=== PATIENT | female | born 1990 | race African-American/Black ===

== ENCOUNTER 2019-09-16 14:32 | Outpatient (RCR) | payer OTHER, SELFPAY ==
--- NOTE | ~2019-09-16 | US_ITS ---
EXAMINATION: US OB BPP wo non-stress DATE: 09/16/2019 16:02 INDICATION: Decreased movements TECHNIQUE: Real-time pelvic ultrasound was performed. The interpreting radiologist was not present fo r the study. COMPARISON: None. FINDINGS: There is a single living fetus in vertex presentation. The placenta is posterior fundal. heart rate is 150 beats per minute (bpm). Biophysical profile performed by the technologist: breathing (30 sec sustained breathing in 30 minutes): 2 out of 2 movement (3 gross body movements in 30 minutes): 2 out of 2 tone (one episode of imnsanz-rjyxgrosi-voevzfx limb movement): 2 out of 2 Amniotic fluid pocket (2 cm): 2 out of 2 Total score: 8 out of 8 IMPRESSION: 1. Single living fetus in vertex presentation with heart rate of 150 bpm. 2. Biophysical profile 8 out of 8. Reviewed, dictated and finalized at location A. MODELING ARCHITECT
[2019-09-16 15:24] VITALS: BP 122/65; PULSE 107
== END 2019-11-24 08:53 | disposition home or self-care (01) ==
LOC: ANHOBOP 14:32
PROVIDERS: PCP Physician Assistant; Visit Provider Obstetrics & Gynecology
DX: O36.8130 Decreased fetal movements, third trimester, not applicable or unspecified (principal); Z3A.29 29 weeks gestation of pregnancy
CPT/HCPCS: 59025; 76819

== ENCOUNTER 2019-11-24 05:39 | Inpatient (IN) | payer OTHER, SELFPAY ==
[2019-11-24] VITALS (169 sets, daily range): BP systolic 61–213; BP diastolic 40–190; PULSE 33–164; RESP 16–18; TEMP 36.4–37.1; O2SAT 83–100; BMI 40.0
[2019-11-24 07:00] LABS: Basophils Percent Auto 0.2 % (0.2-1.2); Eosinophils Absolute Auto 0.1 K/mm3 (0-0.3); Eosinophils Percent Auto 0.4 % (0-4.4); Hemoglobin 13.8 g/dL (12.0-15.0); Immature Granulocyte Absolute 0.13 K/mm3 (0.00-0.031); Immature Granulocyte Percent A 1.1 % (0-0.5); Lymphocytes Absolute Auto 1.64 K/mm3 (0.9-3.2); Lymphocytes Percent Auto 13.6 % (18.3-44.2); Mean Corpuscular HGB Conc 33.7 g/dl (32-36); Mean Corpuscular Hemoglobin 30.7 pg (26-34); Mean Corpuscular Volume 91.3 fl (80-100); Mean Platelet Volume 10.7 fl (7.4-10.4); Monocytes Absolute Auto 0.6 K/mm3 (0.1-0.6); Monocytes Percent Auto 4.7 % (2.6-8.5); Neutrophils Absolute Auto 9.6 K/mm3 (1.3-6.7); Platelet Count Result 205 k/mm3 (150-375); Red Blood Count 4.49 M/mm3 (4.2-5.4); Red Cell Distribution Width 14.7 % (11.5-14.5)
[2019-11-24 07:06] LABS: Alanine Aminotransferase 14 U/L (4-35); Albumin Level 3.7 g/dL (3.5-5.1); Alkaline Phosphatase 132 U/L (38-126); Aspartate Amino Transferase 22 U/L (14-36); Bilirubin,Total 0.3 mg/dL (0.2-1.3); Blood Urea Nitrogen 7 mg/dL (7-17); Calcium 9.3 mg/dL (8.4-10.2); Carbon Dioxide 21 mmol/L (22-30); Chloride 104 mmol/L (98-107); Estimated CRCL calculation 138 ml/min; Estimated Glomerular Filt Rate > 60; Glucose 86 mg/dL (65-105); Potassium 3.7 mmol/L (3.4-5.0); Sodium 131 mmol/L (137-145)
[2019-11-24 07:15] LABS: Uric Acid 5.3 mg/dL (2.5-7.5)
[2019-11-24] MEDS: LACTATED RINGERS 1,000 ML 125 ML IV CONT ×5 (07:18→17:13)
[2019-11-24] MEDS: OXYTOCIN 30 UNITS/NS 500 ML 30 UNITS/500 ML BAG 6 UNITS IV CONT (07:18)
[2019-11-24 10:49] LABS: Glucose Point of Care 78 (65-105)
[2019-11-24 15:04] LABS: Glucose Point of Care 65 (65-105)
[2019-11-24] MEDS: ceFAZolin 2 GM/D5W 50 ML 2 GM/50 ML BAG IVPB (17:15)
--- NOTE | 2019-11-24 18:01 | PM.IMHP ---
H&P: HPI History of Present Illness Chief complaint: SROM Narrative: Leelee Brand is a 29 year old female presented at 38 weeks gestation earlier today with rupture membranes and early labor. Underwent augmentation with Pitocin during the day and amniotic fluid became meconium as the day progressed. At this point patient is at this 4cm unchanged and will be proceeding with primary delivery. also has been complicated by poorly controlled diabetes and has been on metformin 1000 mg twice daily. Review of Systems Review of Systems: All systems reviewed & are unremarkable except as noted in HPI and below PMFSH Family History Family History Mother Sleep apnea Other PCOS (polycystic ovarian syndrome) Social History Social History Smoking packs per day: 0.5 Smoking cigarettes per day: 10.0 Years smoked: 19 Smoking pack-years: 9.50 Smoking status: Current every day smoker Tobacco type: cigarettes Substance use: never Gender identity (if verbalized by the patient): Female Spiritual care concerns: No Meds Home Medications and Allergies Home Medications Medication Instructions Recorded Confirmed Type PNV cmb#95-ferrous fumarate-FA 1 tablet PO DAILY 09/16/19 11/24/19 History [] aspirin 81 mg PO DAILY 09/16/19 11/24/19 History metformin 1,000 mg PO BID 09/16/19 11/24/19 History acyclovir 800 mg PO DAILY 11/24/19 11/24/19 History Allergies Allergy/AdvReac Type Severity Reaction Status Date / Time No Known Allergies Allergy Verified 11/24/19 06:29 Vital Signs Vital Signs - 24 hr 11/24/19 06:16 11/24/19 06:31 11/24/19 06:46 Temperature Pulse Rate 94 101 H 95 Blood Pressure 152/97 H 153/93 H 150/84 H Pulse Oximetry 11/24/19 07:01 11/24/19 07:17 11/24/19 07:31 Temperature Pulse Rate 96 164 H 95 Blood Pressure 144/89 H 134/85 142/86 H Pulse Oximetry 11/24/19 07:46 11/24/19 08:01 11/24/19 08:16 Temperature Pulse Rate 87 95 93 Blood Pressure 143/85 H 136/98 H 142/90 H Pulse Oximetry 11/24/19 08:31 11/24/19 08:37 11/24/19 08:47 Temperature Pulse Rate 93 86 Blood Pressure 147/100 H 147/100 H 213/190 H Pulse Oximetry 11/24/19 09:02 11/24/19 09:13 11/24/19 09:14 Temperature Pulse Rate 89 99 97 Blood Pressure 133/85 150/94 H 131/91 H Pulse Oximetry 100 11/24/19 09:16 11/24/19 09:18 11/24/19 09:23 Temperature Pulse Rate 96 96 101 H Blood Pressure 145/95 H 139/90 151/89 H Pulse Oximetry 100 100 11/24/19 09:26 11/24/19 09:28 11/24/19 09:31 Temperature Pulse Rate 103 H 106 H 109 H Blood Pressure 138/76 139/77 137/86 Pulse Oximetry 100 100 11/24/19 09:33 11/24/19 09:36 11/24/19 09:37 Temperature Pulse Rate 113 H 113 H Blood Pressure 127/78 131/72 Pulse Oximetry 100 100 11/24/19 09:38 11/24/19 09:41 11/24/19 09:43 Temperature Pulse Rate 115 H 114 H 116 H Blood Pressure 120/70 120/62 117/62 Pulse Oximetry 100 100 11/24/19 09:46 11/24/19 09:48 11/24/19 09:51 Temperature Pulse Rate 115 H 92 110 H Blood Pressure 134/99 H 153/123 H 126/91 H Pulse Oximetry 100 11/24/19 09:53 11/24/19 09:57 11/24/19 09:58 Temperature Pulse Rate 112 H 107 H 109 H Blood Pressure 126/104 H 121/63 114/66 Pulse Oximetry 100 100 11/24/19 10:01 11/24/19 10:03 11/24/19 10:05 Temperature Pulse Rate 105 H 109 H 115 H Blood Pressure 126/71 103/61 122/88 Pulse Oximetry 100 11/24/19 10:08 11/24/19 10:13 11/24/19 10:16 Temperature Pulse Rate 97 Blood Pressure 121/73 Pulse Oximetry 100 100 11/24/19 10:18 11/24/19 10:23 05/04/20 10:28 Temperature Pulse Rate Blood Pressure Pulse Oximetry 100 100 100 11/24/19 10:31 11/24/19 10:33 11/24/19 10:38 Temperature Pulse Rate 89 Blood Pressure 111/70 Pulse Oximetry 100 100
--- NOTE | 2019-11-24 18:03 | P.PCNOB_ITS ---
OB - Delivery Note Procedure Procedure: Procedures Operation Date: 11/24/19 17:30 <No data on this case meets the specified criteria> Intrapartal events: Failure to Progress in Labor and Diabetes Route of delivery: Specimen: Yes Estimated blood loss (mL): 500 Anesthesia type: Epidural Disposition: floor Narrative: Patient prepped and draped in usual manner for this procedure. Pfannenstiel incision was made which was carried through the subcutaneous tissue to the fascia which was then extended bilaterally the length of the skin incision. Superiorly and inferiorly dissected away from the rectus muscles which were then bluntly dissected and peritoneum was entered. Bladder flap was developed uterus scored with meconium-stained fluid was noted. For next delivered without difficulty and nuchal cord was noted x1. Rest of baby was delivered cord was cut and the baby was passed off the operative field. Placenta was manually removed and the anterior of the uterus was cleared of membranes and clots. Uterus was exteriorized and approximated 0 Monocryl runn ing interlocking manner with good approximation and hemostasis noted. Uterus was returned to the abdomen gutters were cleared of serosanguineous fluid and clots and the fascia was then approximated using 0 Vicryl from left angle midline to the right angle to the midline with good approximation noted. All subcutaneous tissue was noted be hemostatic approximated using 0 plain suture and the skin was approximated using jo. This point seizure was considered terminated with immediate postop condition of mother and baby both excellent. [place] Baby Weeks of gestation at delivery: 38 gender: Female Weight (pounds): 6 Weight (ounces): 12 presentation: vertex score one minute: 8 score five minutes: 9
--- NOTE | 2019-11-24 18:26 | WPDANESEPPF ---
Anes - Initial Pre Proc Eval Procedure: Operation Date: 11/24/19 17:30 Proposed Procedures p Section - Serafin Davis MD Date/Time: 11/24/19 18:26 Surgeon: Serafin Davis MD Pre Op Diagnosis: SROM Patient Data Age: 29 Gender: F Height: 5 ft Weight: 93 kg Last Vital Signs Temp 36.8 C 11/24/19 16:23 Pulse 100 11/24/19 18:23 BP 91/55 L 11/24/19 18:23 Pulse Ox 100 11/24/19 18:24 Allergies Allergy/AdvReac Type Severity Reaction Status Date / Time No Known Allergies Allergy Verified 11/24/19 06:29 Home Medications Medication Instructions Recorded Confirmed Type PNV cmb#95-ferrous fumarate-FA 1 tablet PO DAILY 09/16/19 11/24/19 History [] aspirin 81 mg PO DAILY 09/16/19 11/24/19 History metformin 1,000 mg PO BID 09/16/19 11/24/19 History acyclovir 800 mg PO DAILY 11/24/19 11/24/19 History Laboratory Tests 11/24/19 11/24/19 11/24/19 06:43 06:43 06:43 WBC 12.0 K/mm3 H K/mm3 (4.5-10.0) RBC 4.49 M/mm3 M/mm3 (4.2-5.4) Hgb 13.8 g/dL g/dL (12.0-15.0) Hct 41.0 % % (37.0-47.0) MCV 91.3 fl fl (80-100) MCH 30.7 pg pg (26-34) MCHC 33.7 g/dl g/dl (32-36) RDW 14.7 % H % (11.5-14.5) Plt Count 205 k/mm3 k/mm3 (150-375) MPV 10.7 fl H fl (7.4-10.4) Immature Gran % (Auto) 1.1 % H % (0-0.5) Neut % (Auto) 80.0 % H % (45.5-73.1) Lymph % (Auto) 13.6 % L % (18.3-44.2) [place] % (Auto) 4.7 % % (2.6-8.5) Eos % (Auto) 0.4 % % (0-4.4) Baso % (Auto) 0.2 % % (0.2-1.2) Lymph # (Auto) 1.64 K/mm3 K/mm3 (0.9-3.2) [place] # (Auto) 0.6 K/mm3 K/mm3 (0.1-0.6) Eos # (Auto) 0.1 K/mm3 K/mm3 (0-0.3) Baso # (Auto) 0.0 K/mm3 K/mm3 (0.0-0.1) Abs Immat Gran (auto) 0.13 K/mm3 H K/mm3 (0.00-0.031) Absolute Neuts (auto) 9.6 K/mm3 H K/mm3 (1.3-6.7) Absolute Nucleated RBC 0.0 K/mm3 K/mm3 (0.0-0.012) Nucleated RBC % 0.0 % % (0.0-0.2) Sodium Potassium Chloride Carbon Dioxide BUN Creatinine Estim Creat Clear Calc Estimated GFR Glucose POC Capillary Glucose Uric Acid Calcium Total Bilirubin AST ALT Alkaline Phosphatase Total Protein Albumin RPR Pending Blood Type O Positive Antibody Screen Negative 11/24/19 11/24/19 11/24/19 06:43 06:45 10:41 WBC RBC Hgb Hct MCV MCH MCHC RDW Plt Count MPV Immature Gran % (Auto) Neut % (Auto) Lymph % (Auto) [place] % (Auto) Eos % (Auto) Baso % (Auto) Lymph # (Auto) [place] # (Auto) Eos # (Auto) Baso # (Auto) Abs Immat Gran (auto) Absolute Neuts (auto) Absolute Nucleated RBC Nucleated RBC % Sodium 131 mmol/L L mmol/L (137-145) Potassium 3.7 mmol/L mmol/L (3.4-5.0) Chloride 104 mmol/L mmol/L (98-107) Carbon Dioxide 21 mmol/L L mmol/L (22-30) BUN 7 mg/dL mg/dL (7-17) Creatinine 0.50 mg/dL L mg/dL (0.7-1.0) Estim Creat Clear Calc 138 ml/min ml/min Estimated GFR > 60 (59 - ) Glucose 86 mg/dL mg/dL (65-105) POC Capillary Glucose 78 mg/dl mg/dl (65-105) Uric Acid 5.3 mg/dL mg/dL (2.5-7.5) Calcium 9.3 mg/dL mg/dL (8.4-10.2) Total Bilirubin 0.3 mg/dL mg/dL (0.2-1.3) AST 22 U/L U/L (14-36) ALT 14
[2019-11-24] MEDS: OXYTOCIN 30 UNITS/NS 500 ML 30 UNITS/500 ML BAG 125 UNITS IV CONT (19:00)
[2019-11-24] MEDS: MORPHINE SULFATE 2 MG/ML INJ 3 MG IV PUSH (19:58)
--- NOTE | 2019-11-24 20:30 | OBPPTRN ---
Patient transferred to post room #285 via stretcher. Support person present. Oriented to unit, room, information board, rooming in, admission packet and security measures. Patient verbalizes understanding.
[2019-11-24] MEDS: KCL 20 MEQ/D5/0.45% SOD CHL 1,000 ML 125 ML IV CONT (22:35)
[2019-11-25 04:30] VITALS: BP 132/86; PULSE 90; RESP 16; TEMP 36.8; O2SAT 100
[2019-11-25] MEDS: IBUPROFEN 600 MG TABLET PO ×3 (04:32→21:24)
[2019-11-25 04:40] LABS: Basophils Percent Auto 0.2 % (0.2-1.2); Eosinophils Percent Auto 0.3 % (0-4.4); Hematocrit 36.6 % (37.0-47.0); Hemoglobin 12.1 g/dL (12.0-15.0); Immature Granulocyte Absolute 0.08 K/mm3 (0.00-0.031); Immature Granulocyte Percent A 0.5 % (0-0.5); Lymphocytes Absolute Auto 1.16 K/mm3 (0.9-3.2); Lymphocytes Percent Auto 7.8 % (18.3-44.2); Mean Corpuscular HGB Conc 33.1 g/dl (32-36); Mean Corpuscular Hemoglobin 30.4 pg (26-34); Mean Platelet Volume 10.8 fl (7.4-10.4); Monocytes Absolute Auto 0.7 K/mm3 (0.1-0.6); Monocytes Percent Auto 4.7 % (2.6-8.5); Neutrophils Absolute Auto 12.9 K/mm3 (1.3-6.7); Neutrophils Percent Auto 86.5 % (45.5-73.1); Platelet Count Result 160 k/mm3 (150-375); Red Blood Count 3.98 M/mm3 (4.2-5.4); Red Cell Distribution Width 14.5 % (11.5-14.5); White Blood Count 14.9 K/mm3 (4.5-10.0)
[2019-11-25 06:58] LABS: Rapid Plasma Reagin Non-Reactive (NonReactive)
--- NOTE | 2019-11-25 07:43 | WPDANLDPN2 ---
Anes-Prog Note L&D Date/Time: 11/25/19 07:43 Comfortable throughout: section Neuraxial method: epidural Epidural/Spinal procedure site: clean & non-tender Neuro status: Neuro function grossly intact. Cardiovascular status: normal Respiratory status: normal Airway patency: baseline Mental status: baseline Post-Op hydration status: normal Vital Signs: Last Vital Signs Temp 36.8 C 11/25/19 04:30 Pulse 90 11/25/19 04:30 Resp 16 11/25/19 04:30 BP 132/86 11/25/19 04:30 Pulse Ox 100 11/25/19 04:30 I/O: Intake & Output 11/24/19 11/24/19 11/25/19 15:59 23:59 07:59 Intake Total 3000 2350 1000 Output Total 2160 2200 Balance 3000 190 -1200 Post-procedural complaints: none Patient feedback: Patient satisfied with anesthetic care.
--- NOTE | 2019-11-25 07:43 | WPDANLDNPN2 ---
Anes-Prog Note L&D-Neuraxial Date/Time: 11/25/19 07:43 Neuraxial medications: epidural PF morphine Opiod-related complaints: none Patient feedback: Patient satisfied with post-operative pain management.
[2019-11-25 08:20] VITALS: BP 145/88; PULSE 102; RESP 18; TEMP 37.2; O2SAT 98
--- NOTE | 2019-11-25 08:57 | PM.OBDSVD ---
DS: Diagnosis Admitting Diagnosis Admitting Diagnosis: Encounter for supervision of normal , unspecified, unspecified trimester OB - DS: Summary OB Procedures : None OB Procedures Intrapartum: OB Procedures: : None Peripartum Data Procedures: Procedures Operation Date: 11/24/19 17:30 Actual Procedures Side Surgeon p Section Not Applicable Serafin Davis MD Time Spent with Patient Time attestation: Total time spent providing and/or coordinating discharge services: DS: Data Data Completed and Pending Pending studies at discharge: Pending at discharge 11/24/19 17:39 Surgical [PTH] Routine Labs on day of discharge: Labs from last 24 hours 11/25/19 11/24/19 11/24/19 04:07 14:59 10:41 WBC 14.9 H RBC 3.98 L Hgb 12.1 Hct 36.6 L MCV 92.0 MCH 30.4 MCHC 33.1 RDW 14.5 Plt Count 160 MPV 10.8 H Immature Gran % (Auto) 0.5 Neut % (Auto) 86.5 H Lymph % (Auto) 7.8 L [place] % (Auto) 4.7 Eos % (Auto) 0.3 Baso % (Auto) 0.2 Lymph # (Auto) 1.16 [place] # (Auto) 0.7 H Eos # (Auto) 0.0 Baso # (Auto) 0.0 Abs Immat Gran (auto) 0.08 H Absolute Neuts (auto) 12.9 H Absolute Nucleated RBC 0.0 Nucleated RBC % 0.0 POC Capillary Glucose 65 78 RPR 11/24/19 06:43 WBC RBC Hgb Hct MCV MCH MCHC RDW Plt Count MPV Immature Gran % (Auto) Neut % (Auto) Lymph % (Auto) [place] % (Auto) Eos % (Auto) Baso % (Auto) Lymph # (Auto) [place] # (Auto) Eos # (Auto) Baso # (Auto) Abs Immat Gran (auto) Absolute Neuts (auto) Absolute Nucleated RBC Nucleated RBC % POC Capillary Glucose RPR Non-reactive Discharge Plan Discharge Discharging Clinician: Serafin Davis Patient Disposition: Home, Self-Care Activity: as tolerated Diet: as tolerated Wound Care Instructions: incision open to air Discharge Instructions: office sunday for staple removal Patient Instructions: Antibiotic Form Stand Alone Forms: General Discharge Information Follow-up/Referrals: Serafin Davis MD [Physician] - 3 Weeks Discharge Medications: New hydrocodone-acetaminophen 5-325 mg Tablet 1 tab PO Q3H PRN (Reason: Moderate Pain (4-6)) Qty: 20 RF: 0 ibuprofen 600 mg Tablet 600 mg PO Q6H PRN (Reason: Cramping) Qty: 30 RF: 0 Continued metformin 1,000 mg Tablet 1,000 mg PO BID RF: 0 PNV cmb#95-ferrous fumarate-FA [] 28 mg iron- 800 mcg Tablet 1 tablet PO DAILY RF: 0 Discontinued acyclovir 800 mg tablet 800 mg PO DAILY RF: 0 aspirin 81 mg Tablet,Chewable 81 mg PO DAILY RF: 0 Date of admission: 11/24/19 05:39 Primary Care Provider: Rocael,Gato Fortune Admitting Provider: Serafin Davis Attending physician on admission: Serafin Davis
[2019-11-25] MEDS: MULTIVIT/MIN/PREN/FOL AC/IRON TABLET 1 TAB PO (09:34)
[2019-11-25] MEDS: metFORMIN HCL 500 MG TABLET 1000 MG PO (09:35)
[2019-11-25] MEDS: SIMETHICONE 80 MG TAB.CHEW PO ×2 (09:35→13:40)
[2019-11-25 11:35] VITALS: BP 136/93; PULSE 108; RESP 18; TEMP 37.6; O2SAT 100
[2019-11-25 21:10] VITALS: BP 149/84; PULSE 112; RESP 16; TEMP 36.8; O2SAT 98
[2019-11-26] MEDS: IBUPROFEN 600 MG TABLET PO ×2 (04:55→13:49)
[2019-11-26] MEDS: metFORMIN HCL 500 MG TABLET 1000 MG PO (08:25)
[2019-11-26] MEDS: DOCUSATE SODIUM 100 MG CAPSULE PO (08:25)
[2019-11-26] MEDS: MULTIVIT/MIN/PREN/FOL AC/IRON TABLET 1 TAB PO (08:25)
[2019-11-26 08:30] VITALS: BP 143/87; PULSE 108; RESP 18; TEMP 36.8; O2SAT 100
--- NOTE | 2019-11-26 14:43 | PC.NURSE ---
1400Discharge papers for mother and baby reviewed with pt; papers signed; mother given staple removal supplies to take with her to Dr. Davis's office on 11-28-19.
--- NOTE | 2019-11-27 10:54 | PM.OBDSVD ---
DS: Diagnosis Admitting Diagnosis Admitting Diagnosis: Encounter for supervision of normal , unspecified, unspecified trimester OB - DS: Summary OB Procedures : None OB Procedures Intrapartum: OB Procedures: : None Peripartum Data Procedures: Procedures Operation Date: 11/24/19 17:30 Actual Procedures Side Surgeon p Section Not Applicable Serafin Davis MD Time Spent with Patient Time attestation: Total time spent providing and/or coordinating discharge services: DS: Data Data Completed and Pending Completed studies during hospitalization: Pending at discharge 11/24/19 17:39 Surgical [PTH] Routine Discharge Plan Discharge Consulting providers: Donald Galo Discharging Clinician: Serafin Davis Patient Disposition: Home, Self-Care Activity: as tolerated Diet: as tolerated Wound Care Instructions: incision open to air Discharge Instructions: Education: Mom and Baby Guide Given to: Mother Follow-Up: Call your delivering provider's office for an appointment to be seen in: Sunday, -, in office, for staple removal Mom and baby should come to the [facility] for the follow-up appointment. Appointment Date/Time: November 27, 2019 at 11:00 am What to expect at your follow-up visit: Blood Pressure Check Physical Assessment Call [phone] if you are unable to keep your appointment time. BREAST CARE: 1. Wear a snug supportive bra. 2. For engorgement discomfort: Bottle Feeding: A. May apply ice packs ABDOMINAL INCISION: (if applicable) 1. Allow incision to air dry 2. Do NOT use lotions for powders on your incision 3. When showering, allow soap and water to run over the incision, but do not wash incision EPISIOTOMY/PERINEAL CARE: 1. Until bleeding stops, use your yemi bottle after urinating 2. Change your pad frequently throughout the day 3. No tub baths until seen by your physician - You may shower ACTIVITY: 1. Rest as much as possible. 2. Do not exercise or lift anything heavier than your baby (such as laundry or other children.) 3. Avoid stairs or driving as much as possible. 4. Do not put anything into the vagina. No douching, tampons, or sexual activity until seen by physician. NOTIFY PHYSICIAN IF YOU HAVE ANY QUESTIONS OR IF ANY OF THE FOLLOWING SYMPTOMS OCCUR: 1. If your incision becomes red, swollen, or more painful than what you have experienced in the hospital. 2. If your vaginal bleeding becomes foul smelling. 3. If your vaginal bleeding becomes more heavy than a period or if your bleeding changes from pink to bright red. However, you may pass an occasional walnut-sized clot once or twice for the first week . 4. If you experience a sharp, shooting pain in you calves. 5. If you discover a hard, reddened area on your breast or if you experience flu-like symptoms. DIET: 1. Eat regular, well-balanced meals. 2. Drink plenty of fluids daily. If , drink to thirst.office sunday for staple removal Stand Alone Forms: General Discharge Information Follow-up/Referrals: Serafin Davis MD [Physician] - 3 Weeks Discharge Medications: New hydrocodone-acetaminophen 5-325 mg Tablet 1 tab PO Q3H PRN (Reason: Moderate Pain (4-6)) Qty: 20 RF: 0 ibuprofen 600 mg Tablet 600 mg PO Q6H PRN (Reason: Cramping) Qty: 30 RF: 0 Continued metformin 1,000 mg Tablet 1,000 mg PO BID RF: 0 PNV cmb#95-ferrous fumarate-FA [] 28 mg iron- 800 mcg Tablet 1 tablet PO DAILY RF: 0 Discontinued acyclovir 800 mg tablet 800 mg PO DAILY RF: 0 aspirin 81 mg Tablet,Chewable 81 mg PO DAILY RF: 0 Date of admission: 11/24/19 05:39 Primary Care Provider: Rocael,Gato Fortune Admitting Provider: Serafin Davis Discharge Date/Time: 11/26/19 14:28 Attending physician on admission: Serafin Davis
[2019-11-27 11:49] VITALS: BP 139/87; PULSE 101; RESP 20; TEMP 36.7
== END 2019-11-26 14:28 | disposition home or self-care (01) | DRG 540 ==
LOC: ANHLDR 06:48 → ANHOB2 20:32
PROVIDERS: Admitting Provider Obstetrics & Gynecology; PCP Physician Assistant; Visit Provider Obstetrics & Gynecology
PROC: 10D00Z1 Extraction of Products of Conception, Low, Open Approach (ICD-10-PCS; CPT 59514; principal; 2019-11-24 17:30)
DX: O24.429 Gestational diabetes mellitus in childbirth, unspecified control (principal); Z37.0 Single live birth; Z3A.39 39 weeks gestation of pregnancy; O36.8330 Maternal care for abnormalities of the fetal heart rate or rhythm, third trimester, not applicable or unspecified; O77.0 Labor and delivery complicated by meconium in amniotic fluid; O62.1 Secondary uterine inertia; O99.214 Obesity complicating childbirth; E66.01 Morbid (severe) obesity due to excess calories; O99.344 Other mental disorders complicating childbirth; F41.8 Other specified anxiety disorders
CPT/HCPCS: 36415; 80053; 84550; 85025; 86592; 86850; 86900; 86901; 88307; A9270; J0131; J0690; J2270; J2274; J2405; J2590; J2795; J3480; J7120